=== PATIENT | male | born 1995 ===

== ENCOUNTER 2020-11-30 12:57 | Emergency (ER) | payer OTHER ==
[~2020-11-30] VITALS: Ht 167.6 cm; Wt 81.6 kg
[2020-11-30] MEDS ORDERED: VRAYLAR1.5 MG PO (13:13)
[2020-11-30] MEDS ORDERED: BUSP15TAB2 PO (13:14)
[2020-11-30 13:38] LABS: PLATELET COUNT 302 K/uL (142-355)
[2020-11-30 13:49] LABS: POTASSIUM 3.4 mmol/L (3.6-5.2); SODIUM 141 mmol/L (136-145)
[2020-11-30 15:30] VITALS: BP 146/94; TEMP 97.9
== END 2020-11-30 15:30 | disposition home or self-care (01) ==
LOC: ED 13:09
PROVIDERS: Family Medicine
DX: F41.8 Other specified anxiety disorders (principal); R00.0 Tachycardia, unspecified; T50.995A Adverse effect of other drugs, medicaments and biological substances, initial encounter; X58.XXXA Exposure to other specified factors, initial encounter; Y93.89 Activity, other specified; Y92.89 Other specified places as the place of occurrence of the external cause
CPT/HCPCS: 80053; 80307; 81000; 84484; 85027; 93005; 99284